=== PATIENT | male | born 1990 | race Caucasian/White ===

== ENCOUNTER 2017-03-27 21:12 | Emergency (ER) | payer OTHER ==
[~2017-03-27] VITALS: Ht 177.8 cm; Wt 68.0 kg
[2017-03-27 21:32] VITALS: BP 126/61; PULSE 90; RESP 16; TEMP 98.3; O2SAT 96
[2017-03-27 22:05] LABS: AUTOMATED NEUTROPHIL # 11.9 TH/MM3 (1.8-7.7); BASOPHIL # 0.1 TH/MM3 (0-0.2); BASOPHIL % 0.8 % (0.0-2.0); EOSINOPHIL # 0.3 TH/MM3 (0-0.4); EOSINOPHIL % 1.8 % (0.0-4.0); HEMATOCRIT 44.1 % (39.0-51.0); HEMO FLAGS DIFF FINAL; LYMPH % 11.3 % (9.0-44.0); LYMPHOCYTE # 1.7 TH/MM3 (1.0-4.8); MEAN CELL VOLUME 91.8 FL (80.0-100.0); MEAN CORPUSCULAR HEMOGLOBIN 30.5 PG (27.0-34.0); MEAN CORPUSCULAR HGB CONC 33.3 % (32.0-36.0); NEUT % 78.1 % (16.0-70.0); PLATELET COUNT 226 TH/MM3 (150-450); RED CELL DISTRIBUTION WIDTH 13.5 % (11.6-17.2); WHITE BLOOD COUNT 15.2 TH/MM3 (4.0-11.0)
[2017-03-27 22:25] LABS: ANION GAP 8 MEQ/L (5-15)
--- NOTE | 2017-03-27 22:40 | PD ---
HPI Chief Complaint: Psychiatric Symptoms Time Seen by Provider: 22:34 Travel History International Travel<30 days: No Contact w/Intl Traveler<30days: No Traveled to known affect area: No History of Present Illness HPI 27-year-old white male presents to emergency department under Humphreys act by PD. The patient is been going through social issues with his . They have a 3- year-old daughter at home. He states that he had left the house in [place] and was on his way to visit family members in [place]. According to the patient he had sent suggestive text messages of a suicidal nature to his . The patient denies any true suicidal ideation. No toxic ingestions. No recent illness. He does smoke cigarettes, marijuana and drinks occasionally. He denies any other drugs. Patient states that he is merely upset and frustrated with the situation. PFSH Past Medical History Narrative Medical Septic arthritis in the right knee Tetanus Vaccination: < 5 Years Past Surgical History Narrative Surgical Open irrigation of the right knee Other Surgery: Yes (RIGHT KNEE STAPH INFECTION ) Social History Alcohol Use: Yes (OCC) Tobacco Use: Yes Substance Use: Yes (mj) Allergies-Medications (Allergen,Severity, Reaction): Coded Allergies: No Known Allergies (Unverified , 03/27/17) Reported Meds & Prescriptions Reported Meds & Active Scripts Active No Active Prescriptions or Reported Medications Review of Systems Except as stated in HPI: all other systems reviewed are Neg Physical Exam Narrative GENERAL: Well-nourished, well-developed patient. SKIN: Warm and dry. HEAD: Normocephalic and atraumatic. EYES: No scleral icterus. No injection or drainage. ENT: No nasal drainage noted. Mucous membranes pink. Airway patent. NECK: Supple, trachea midline. Moves head freely without obvious discomfort. CARDIOVASCULAR: Regular rate and rhythm without murmurs, gallops, or rubs. RESPIRATORY: Breath sounds equal bilaterally. No accessory muscle use. GASTROINTESTINAL: Abdomen soft, non-tender, nondistended. EXTREMITIES: No cyanosis or edema. BACK: Nontender without obvious deformity. No CVA tenderness. NEURO: Patient is alert and oriented. no sensorimotor deficits. Nonfocal. Normal speech. PSYCH: No delusions. No auditory or visual hallucinations. Data Data Last Documented VS Vital Signs Date Time Temp Pulse Resp B/P Pulse Ox O2 Delivery O2 Flow Rate FiO2 03/27/17 21:32 98.3 90 16 126/61 96 Orders Complete Blood Count With Diff (03/27/17 21:35) Comprehensive Metabolic Panel (03/27/17 21:35) Psych Screen (03/27/17 21:35) Drug Screen, Random Urine (03/27/17 21:35) Alcohol (Ethanol) (03/27/17 21:35) Salicylates (Aspirin) (03/27/17 21:35) Tylenol (Acetaminophen) (03/27/17 21:35) Labs Laboratory Tests Test 03/27/17 03/27/17 21:30 21:45 White Blood Count 15.2 TH/MM3 Red Blood Count 4.80 MIL/MM3 Hemoglobin 14.7 GM/DL Hematocrit 44.1 % Mean Corpuscular Volume 91.8 FL Mean Corpuscular Hemoglobin 30.5 PG Mean Corpuscular Hemoglobin 33.3 % Concent Red Cell Distribution Width 13.5 % Platelet Count 226 TH/MM3 Mean Platelet Volume 7.7 FL Neutrophils (%) (Auto) 78.1 % Lymphocytes (%) (Auto) 11.3 % Monocytes (%) (Auto) 8.0 % Eosinophils (%) (Auto) 1.8 % Basophils (%) (Auto) 0.8 % Neutrophils # (Auto) 11.9 TH/MM3 Lymphocytes # (Auto) 1.7 TH/MM3 Monocytes # (Auto) 1.2 TH/MM3 Eosinophils # (Auto) 0.3 TH/MM3 Basophils # (Auto) 0.1 TH/MM3 CBC Comment DIFF FINAL Differential Comment Sodium Level 137 MEQ/L Potassium Level 3.7 MEQ/L Chloride Level 100 MEQ/L Carbon Dioxide Level 28.9 MEQ/L Anion Gap 8 MEQ/L Blood Urea Nitrogen 14 MG/DL Creatinine 0.86 MG/DL Estimat Glomerular Filtration 108 ML/MIN Rate Random Glucose 135 MG/DL Calcium Level 8.9 MG/DL Total Bilirubin 0.6 MG/DL Aspartate Amino Transf 14 U/L (AST/SGOT) Alanine Aminotransferase 18 U/L (ALT/SGPT) Alkaline Phosphatase 71 U/L Total Protein 7.3 GM/DL Albumin 4.3 GM/DL Salicylates Level 2.2 MG/DL Acetaminophen Level LESS THAN 2.0 MCG/ML Ethyl Alcohol Level LESS THAN 3 MG/DL Urine Opiates Screen POS Urine Barbiturates Screen NEG Urine Amphetamines Screen NEG Urine Benzodiazepines Screen NEG Urine Cocaine Screen NEG Urine Cannabinoids Screen POS MDM Medical Decision Making Medical Screen Exam Complete: Yes Emergency Medical Condition: Yes Medical Record Reviewed: Yes Interpretation(s) Laboratory Tests Test 03/27/17 03/27/17 21:30 21:45 White Blood Count 15.2 TH/MM3 Red Blood Count 4.80 MIL/MM3 Hemoglobin 14.7 GM/DL Hematocrit 44.1 % Mean Corpuscular Volume 91.8 FL Mean Corpuscular Hemoglobin 30.5 PG Mean Corpuscular Hemoglobin 33.3 % Concent Red Cell Distribution Width 13.5 % Platelet Count 226 TH/MM3 Mean Platelet Volume 7.7 FL Neutrophils (%) (Auto) 78.1 % Lymphocytes (%) (Auto) 11.3 % Monocytes (%) (Auto) 8.0 % Eosinophils (%) (Auto) 1.8 % Basophils (%) (Auto) 0.8 % Neutrophils # (Auto) 11.9 TH/MM3 Lymphocytes # (Auto) 1.7 TH/MM3 Monocytes # (Auto) 1.2 TH/MM3 Eosinophils # (Auto) 0.3 TH/MM3 Basophils # (Auto) 0.1 TH/MM3 CBC Comment DIFF FINAL Differential Comment Sodium Level 137 MEQ/L Potassium Level 3.7 MEQ/L Chloride Level 100 MEQ/L Carbon Dioxide Level 28.9 MEQ/L Anion Gap 8 MEQ/L Blood Urea Nitrogen 14 MG/DL Creatinine 0.86 MG/DL Estimat Glomerular Filtration 108 ML/MIN Rate Random Glucose 135 MG/DL Calcium Level 8.9 MG/DL Total Bilirubin 0.6 MG/DL Aspartate Amino Transf 14 U/L (AST/SGOT) Alanine Aminotransferase 18 U/L (ALT/SGPT) Alkaline Phosphatase 71 U/L Total Protein 7.3 GM/DL Albumin 4.3 GM/DL Salicylates Level 2.2 MG/DL Acetaminophen Level LESS THAN 2.0 MCG/ML Ethyl Alcohol Level LESS THAN 3 MG/DL Urine Opiates Screen POS Urine Barbiturates Screen NEG Urine Amphetamines Screen NEG Urine Benzodiazepines Screen NEG Urine Cocaine Screen NEG Urine Cannabinoids Screen POS Differential Diagnosis MDM: High Differential diagnoses: Schizophrenia, schizoaffective disorder, bipolar, anxiety, depression, adjustment reaction, mood disorder NOS,substance induced mood disorder, infection,electrolyte abnormality, malingering. Narrative Course Mental health screening discussed with the patient. Psychiatric screen ordered. The patient is been medically cleared. This is medical clearance for psychiatric admission, adjustment reaction with depressed mood, substance abuse Diagnosis Primary Impression: Medical clearance for psychiatric admission Additional Impressions: Adjustment reaction of adolescence with depressed mood Substance abuse Scripts No Active Prescriptions or Reported Meds Condition: Wilber Swift Mar 27, 2017 22:40
[2017-03-27 22:48] LABS: ALKALINE PHOSPHATASE 71 U/L (45-117); ALT (GPT) 18 U/L (12-78); AST (GOT) 14 U/L (15-37); BICARBONATE 28.9 MEQ/L (21.0-32.0); BLOOD UREA NITROGEN 14 MG/DL (7-18); CHLORIDE 100 MEQ/L (98-107); GLOMERULAR FILTRATION RATE 108 ML/MIN (>89); POTASSIUM 3.7 MEQ/L (3.5-5.1); SODIUM (NA) 137 MEQ/L (136-145); TOTAL BILIRUBIN ADULT 0.6 MG/DL (0.2-1.0)
[2017-03-27 22:50] LABS: ACETAMINOPHEN LESS THAN 2.0 MCG/ML (10.0-30.0); ALCOHOL LESS THAN 3 MG/DL (0-5)
[2017-03-27 23:23] VITALS: BP 135/76; PULSE 84; RESP 18; O2SAT 100
[2017-03-28 07:06] VITALS: BP 130/68; PULSE 57; RESP 18; O2SAT 99
--- NOTE | 2017-03-28 10:31 | PD.PSY.CON ---
Provisional Diagnosis Admission Date Pierce I. Adjustment disorder with depressed mood vs substance-induced mood disorder, cannabis and opiates use disorder Pierce II. Deferred Pierce III. No significant medical history History of Present Illness Service Psychiatry Consult Requested By Reason for Consult Suicidal statement Primary Care Physician Unknown HPI The patient is a 27-year-old man, domicile with his mother and in [place], employed, with psychiatric history of bipolar disorder, opiates and cannabis use disorder, no psychiatric hospitalizations no previous suicidal attempts, he is not taking psychotropics, no significant medical history, who presents to emergency department under Humphreys act by PD. The patient is been going through social issues with his . They have a 3-year-old daughter at home. He states that he had left the house in [place] and was on his way to visit family members in [place]. According to the patient he had sent suggestive text messages of a suicidal nature to his . The patient denies any true suicidal and homicidal ideation. Patient admits been using cannabis and marijuana lately, I almost everyday. Patient clarifies that yesterday was just upset with his , "I may some commentaries that he should not make, but I am find today". Patient says that he will never kill himself, he has a 3 years old daughter that he loves. He also has a good job a in high school. Patient denies visual and auditory hallucinations. He is oriented 3. Review of Systems Constitutional: DENIES: Diaphoretic episodes, Fatigue, Fever, Weight gain, Weight loss, Chills, Dizziness, Change in appetite, Night Sweats Endocrine: DENIES: Heat/cold intolerance, Polydipsia, Polyuria, Polyphagia Eyes: DENIES: Blurred vision, Diplopia, Eye inflammation, Eye pain, Vision loss , Photosensitivity, Double Vision Ears, nose, mouth, throat: DENIES: Tinnitus, Hearing loss, Vertigo, Nasal discharge, Oral lesions, Throat pain, Hoarseness, Ear Pain, Running Nose, Epistaxis, Sinus Pain, Toothache, Odynophagia Respiratory: DENIES: Apneas, Cough, Snoring, Wheezing, Hemoptysis, Sputum production, Shortness of breath Cardiovascular: DENIES: Chest pain, Palpitations, Syncope, Dyspnea on Exertion , PND, Lower Extremity Edema, Orthopnea, Claudication Gastrointestinal: DENIES: Abdominal pain, Black stools, Bloody stools, Constipation, Diarrhea, Nausea, Vomiting, Difficulty Swallowing, Anorexia Genitourinary: DENIES: Sexual dysfunction, Urinary frequency, Urinary incontinence, Urgency, Hematuria, Dysuria, Nocturia, Penile Discharge, Testicular Pain, Testicular Swelling Integumentary: DENIES: Abnormal pigmentation, Nail changes, Pruritus, Rash Hematologic/lymphatic: DENIES: Bruising, Lymphadenopathy Immunologic/allergic: DENIES: Eczema, Urticaria Neurologic: DENIES: Abnormal gait, Headache, Localized weakness, Paresthesias, Seizures, Speech Problems, Tremor, Poor Balance Psychiatric: DENIES: Anxiety, Confusion, Mood changes, Depression, Hallucinations, Agitation, Suicidal Ideation, Homicidal Ideation, Delusions Past Family Social History Coded Allergies: No Known Allergies (Unverified , 03/27/17) No Active Prescriptions or Reported Meds Family History No family psychiatric history Social History Patient was born and raised in [facility], but he lives in [place], as was mother and , he has a 3 years old daughter, 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 2) Verbal communication Physical Exam Vital Signs Vital Signs Date Time Temp Pulse Resp B/P Pulse Ox O2 Delivery O2 Flow Rate FiO2 03/28/17 07:06 57 18 130/68 99 03/27/17 21:32 98.3 Lab Results Labs Laboratory Tests Test 03/27/17 03/27/17 21:30 21:45 White Blood Count 15.2 TH/MM3 Red Blood Count 4.80 MIL/MM3 Hemoglobin 14.7 GM/DL Hematocrit 44.1 % Mean Corpuscular Volume 91.8 FL Mean Corpuscular Hemoglobin 30.5 PG Mean Corpuscular Hemoglobin 33.3 % Concent Red Cell Distribution Width 13.5 % Platelet Count 226 TH/MM3 Mean Platelet Volume 7.7 FL Neutrophils (%) (Auto) 78.1 % Lymphocytes (%) (Auto) 11.3 % Monocytes (%) (Auto) 8.0 % Eosinophils (%) (Auto) 1.8 % Basophils (%) (Auto) 0.8 % Neutrophils # (Auto) 11.9 TH/MM3 Lymphocytes # (Auto) 1.7 TH/MM3 Monocytes # (Auto) 1.2 TH/MM3 Eosinophils # (Auto) 0.3 TH/MM3 Basophils # (Auto) 0.1 TH/MM3 CBC Comment DIFF FINAL Differential Comment Sodium Level 137 MEQ/L Potassium Level 3.7 MEQ/L Chloride Level 100 MEQ/L Carbon Dioxide Level 28.9 MEQ/L Anion Gap 8 MEQ/L Blood Urea Nitrogen 14 MG/DL Creatinine 0.86 MG/DL Estimat Glomerular Filtration 108 ML/MIN Rate Random Glucose 135 MG/DL Calcium Level 8.9 MG/DL Total Bilirubin 0.6 MG/DL Aspartate Amino Transf 14 U/L (AST/SGOT) Alanine Aminotransferase 18 U/L (ALT/SGPT) Alkaline Phosphatase 71 U/L Total Protein 7.3 GM/DL Albumin 4.3 GM/DL Salicylates Level 2.2 MG/DL Acetaminophen Level LESS THAN 2.0 MCG/ML Ethyl Alcohol Level LESS THAN 3 MG/DL Urine Opiates Screen POS Urine Barbiturates Screen NEG Urine Amphetamines Screen NEG Urine Benzodiazepines Screen NEG Urine Cocaine Screen NEG Urine Cannabinoids Screen POS Mental Status Examination Appearance man, good hygiene, calm and cooperative Speech: Unremarkable Memory: Unremarkable Thought Process: Logical Thought Content: Unremarkable Hallucination Type: None Suicidal Ideation: No Previous Suicide Attempts: No Homicidal Ideation: No Previous Homicide Attempts: No Judgment: WNL Affect: Good Mood: Appropriate Motor Activity: Normal gait Assessment & Plan Problem List: (1) Adjustment disorder with depressed mood Assessment & Plan: Patient does not meet criteria for psychiatric admission at this moment, he doesn't have any evidence of acute depression, anxiety or onofre , he denies suicidal and homicidal ideation, he denies visual and auditory hallucinations. No symptoms of psychosis present either. Extensive support, motivation and psychoeducation provided. Humphreys act will be lifted. ICD Code: F43.21 Assessment & Plan Estimated LOS: Madhu Guajardo MD Mar 28, 2017 10:31
== END 2017-03-28 09:40 | disposition home or self-care (01) ==
LOC: NEPD 21:12 → NEPJ 03-28 09:40
DX: F43.20 Adjustment disorder, unspecified (principal); F19.10 Other psychoactive substance abuse, uncomplicated; M00.861 Arthritis due to other bacteria, right knee; F17.210 Nicotine dependence, cigarettes, uncomplicated
CPT/HCPCS: 80053; 80307; 85025; 99284